=== PATIENT | female | born 1935 | race Caucasian/White ===

== ENCOUNTER 2019-06-01 14:48 | Outpatient (CLI) | payer MEDICARE, SELFPAY ==
[2019-06-01 15:53] LABS: Alanine Aminotransferase 13 U/L (4-35); Aspartate Amino Transferase 34 U/L (14-36)
== END 2019-06-01 14:49 | disposition home or self-care (01) ==
LOC: ANHLAB 14:54
PROVIDERS: PCP Family Medicine; Visit Provider Podiatrist Foot & Ankle Surgery
DX: B35.1 Tinea unguium (principal)
CPT/HCPCS: 36415; 84450; 84460